=== PATIENT | male | born 1990 | race American Indian/Alaskan Native ===

== ENCOUNTER 2016-04-23 12:35 | Emergency (ER) | payer SELFPAY ==
[2016-04-23 12:58] VITALS: BP 138/87
--- NOTE | 2016-04-23 13:36 | Emergency Department Report ---
ED Back Pain/Injury HPI - General Chief Complaint: Back Pain/Injury Stated Complaint: BACK PAIN Time Seen by Provider: 04/23/16 13:33 Source: patient Limitations: No Limitations - Related Data Home Medications Medication Instructions Recorded Confirmed Last Taken Albuterol Sulfate [Ventolin HFA] 2 puff IH Q4H PRN 09/18/13 06/22/15 Unknown Previous Rx's Medication Instructions Recorded Last Taken Type HYDROcodone/APAP 5-325 [[place] 1 each PO Q6HR PRN #15 tablet 08/17/15 Unknown Rx 5-325 mg TAB] Codeine (Nf) 30 mg PO Q4H PRN #15 tablet 04/23/16 Unknown Rx Cyclobenzaprine HCl [Flexeril 5 MG 5 mg PO TID #14 tab 04/23/16 Unknown Rx TAB] Naproxen [Naprosyn TAB] 500 mg PO BID #20 tablet 04/23/16 Unknown Rx Allergies Allergy/AdvReac Type Severity Reaction Status Date / Time No Known Allergies Allergy Verified 04/23/16 12:55 ED Review of Systems ROS: Stated complaint: BACK PAIN Other details as noted in HPI Constitutional: denies: chills, fever Eyes: denies: eye pain, eye discharge, vision change ENT: denies: ear pain, throat pain Respiratory: denies: cough, shortness of breath, wheezing Cardiovascular: denies: chest pain, palpitations Gastrointestinal: denies: abdominal pain, nausea, diarrhea, constipation Genitourinary: denies: urgency, dysuria, frequency, hematuria, discharge, testicular pain, testicular mass Musculoskeletal: back pain Skin: denies: rash, lesions ED Past Medical Hx - Past Medical History Hx Hypertension: Yes Hx CVA: No Hx Heart Attack/AMI: No Hx Congestive Heart Failure: No Hx Diabetes: No Hx Deep Vein Thrombosis: No Hx Pulmonary Embolism: No Hx GERD: No Hx Liver Disease: No Hx Renal Disease: No Hx Sickle Cell Disease: No Hx Arthritis: No Hx Headaches / Migraines: No Hx Seizures: No Hx Kidney Stones: Yes Hx Psychiatric Treatment: No Hx Asthma: Yes Hx COPD: No Hx Tuberculosis: No Hx Dementia: No Hx HIV: No Additional medical history: OBESITY - Surgical History Hx Coronary Stent: No Hx Open Heart Surgery: No Hx Pacemaker: No Hx Internal Defibrillator: No Hx Cholecystectomy: No Hx Appendectomy: Yes Hx Breast Surgery: No - Social History Smoking Status: Never Smoker Substance Use Type: Alcohol - Medications Home Medications: Home Medications Medication Instructions Recorded Confirmed Last Taken Type Albuterol Sulfate [Ventolin HFA] 2 puff IH Q4H PRN 09/18/13 06/22/15 Unknown History HYDROcodone/APAP 5-325 [[place] 1 each PO Q6HR PRN #15 tablet 08/17/15 Unknown Rx 5-325 mg TAB] Codeine (Nf) 30 mg PO Q4H PRN #15 tablet 04/23/16 Unknown Rx Cyclobenzaprine HCl [Flexeril 5 MG 5 mg PO TID #14 tab 04/23/16 Unknown Rx TAB] Naproxen [Naprosyn TAB] 500 mg PO BID #20 tablet 04/23/16 Unknown Rx ED Physical Exam - General Limitations: No Limitations General appearance: alert, in no apparent distress - Head Head exam: Present: atraumatic, normocephalic - Eye Eye exam: Present: normal appearance - ENT ENT exam: Present: mucous membranes moist - Neck Neck exam: Present: normal inspection - Respiratory Respiratory exam: Present: normal lung sounds bilaterally. Absent: respiratory distress - Cardiovascular Cardiovascular Exam: Present: regular rate - GI/Abdominal GI/Abdominal exam: Present: soft. Absent: distended, tenderness, guarding, rebound, rigid - exam: Absent: testicular tenderness, scrotal swelling - Back Exam Back exam: Present: paraspinal tenderness. Absent: CVA tenderness (R), CVA tenderness (L), vertebral tenderness - Neurological Exam Neurological exam: Present: alert, oriented X3. Absent: altered - Skin Skin exam: Present: warm, dry, intact. Absent: rash ED Course Vital Signs 04/23/16 12:48 Temperature 98.2 F Pulse Rate 69 Respiratory 20 Rate Blood Pressure 138/87 O2 Sat by Pulse 98 Oximetry Critical care attestation.: If time is entered above; I have spent that time in minutes in the direct care of this critically ill patient, excluding procedure time. ED Disposition Clinical Impression: Chronic back pain greater than 3 months duration Disposition: DISCHARGED TO HOME OR SELFCARE Is pt being admited?: No Does the pt Need Aspirin: No Condition: Stable Instructions: Chronic Back Pain (ED) Prescriptions: Codeine (Nf) 30 mg PO Q4H PRN #15 tablet PRN Reason: Pain Cyclobenzaprine HCl [Flexeril 5 MG TAB] 5 mg PO TID #14 tab Naproxen [Naprosyn TAB] 500 mg PO BID #20 tablet Referrals: PRIMARY CARE, [Primary Care Provider] - 3-5 Days TD REYES MD [Staff Physician] - 3-5 Days Forms: Work/School Release Form, Work/School Excuse Out Patient
== END 2016-04-23 14:01 | disposition home or self-care (01) ==
LOC: ED 12:35
DX: M54.9 Dorsalgia, unspecified (principal); G89.29 Other chronic pain; I10 Essential (primary) hypertension; E66.9 Obesity, unspecified
CPT/HCPCS: 99282

== ENCOUNTER 2016-07-09 01:34 | Emergency (ER) | payer SELFPAY ==
[2016-07-09 01:57] VITALS: BP 158/107
[2016-07-09 02:31] LABS: Basophils % (Auto) 0.6 % (0.0-1.8); Eosinophils % (Auto) 2.3 % (0.0-4.3); Hematocrit 40.6 % (35.5-45.6); Hemoglobin 13.2 gm/dl (11.8-15.2); Mean Corpuscular HGB Conc 33 % (32-34); Mean Corpuscular Hemoglobin 28 pg (28-32); Mean Corpuscular Volume 87 fl (84-94); Platelet Count 213 K/mm3 (140-440); Red Blood Count 4.67 M/mm3 (3.65-5.03); Red Cell Distribution Width 13.1 % (13.2-15.2); White Blood Count 11.7 K/mm3 (4.5-11.0)
--- NOTE | 2016-07-09 02:44 | Cat Scan Report ---
FINAL REPORT PROCEDURE: CT HEAD/BRAIN WO CON TECHNIQUE: Computerized tomography of the head was performed without contrast material. HISTORY: LEFT NUMBNESS arm COMPARISON: 11/02/2012 FINDINGS: Skull and scalp: Normal. Paranasal sinuses: Normal. Ventricles and subarachnoid spaces: Normal. Cerebrum: No evidence of hemorrhage, acute infarction or mass . Cerebellum and brainstem: No evidence of hemorrhage, acute infarction or mass. Vasculature: Normal. Comments: None. IMPRESSION: There is no evidence of an acute intracranial process
[2016-07-09 02:55] LABS: Anion Gap 19 mmol/L; Blood Urea Nitrogen 16 mg/dL (9-20); Calcium 9.1 mg/dL (8.4-10.2); Carbon Dioxide 24 mmol/L (22-30); Chloride 101.4 mmol/L (98-107); Glucose 93 mg/dL (75-100); Sodium 140 mmol/L (137-145)
--- NOTE | 2016-07-12 15:12 | ED Elopement Review ---
ED Pt Elopement review - Results review Lab results: Laboratory Tests 07/09/16 07/09/16 02:13 02:13 WBC 11.7 H RBC 4.67 Hgb 13.2 Hct 40.6 MCV 87 MCH 28 MCHC 33 RDW 13.1 L Plt Count 213 Lymph % (Auto) 36.3 H [place] % (Auto) 8.3 H Eos % (Auto) 2.3 Baso % (Auto) 0.6 Lymph # 4.3 [place] # 1.0 H Eos # 0.3 Baso # 0.1 Seg Neutrophils % 52.5 Seg Neutrophils # 6.2 Sodium 140 Potassium 4.0 Chloride 101.4 Carbon Dioxide 24 Anion Gap 19 BUN 16 Creatinine 1.0 Estimated GFR > 60 BUN/Creatinine Ratio 16.00 Glucose 93 Calcium 9.1 Troponin T < 0.010 - Call Back decision Pt Call Back Decision: No action required
== END 2016-07-09 12:31 | disposition left against medical advice (07) ==
LOC: ED 01:34
DX: R07.9 Chest pain, unspecified (principal); Z53.21 Procedure and treatment not carried out due to patient leaving prior to being seen by health care provider
CPT/HCPCS: 36415; 70450; 80048; 84484; 85025; 93005; 93010

== ENCOUNTER 2016-11-17 18:01 | Emergency (ER) | payer SELFPAY ==
[2016-11-17 18:11] VITALS: BP 147/92
--- NOTE | 2016-11-17 19:47 | XRay Report ---
FINAL REPORT PROCEDURE: XR WRIST 3+V RT TECHNIQUE: Three views of the right wrist are obtained HISTORY: right wrist injury pain COMPARISON: No prior studies are available for comparison. FINDINGS: Soft tissue swelling is seen. No fracture or dislocation is seen. No arthritic changes are seen. IMPRESSION: No fracture is seen.
[2016-11-17] MEDS ORDERED: MOTRIN PO ONE (21:15)
--- NOTE | 2016-11-17 21:44 | Emergency Department Report ---
ED Upper Extremity Inj HPI - General Chief Complaint: Extremity Injury, Upper Stated Complaint: RT WRIST POSS FRACTURE Time Seen by Provider: 11/17/16 20:30 Source: patient Mode of arrival: Ambulatory Limitations: No Limitations - History of Present Illness Initial Comments: This is a 26-year-old male nontoxic, well nourished in appearance, no acute signs of distress presents to the ED complaining of right hand and right wrist pain. Patient stated earlier today around 3 PM patient punched a refrigerator. Patient denies any numbness, tingling, pus, drainage, fever, chills, headache , stiff neck, chest pain or shortness of breath. Associated symptoms include swelling and tenderness to touch. Patient denies any pop sensation. Denies any allergies. Past medical history includes asthma, hypertension, kidney stones, and obesity. MD Complaint: Injury to:: right -: Gradual, This afternoon Other Extremity Injury: Hand: Right Other Injuries: none Place: home Severity scale (0 -10): 8 Improves With: none Worsens With: none Context: direct blow Associated Symptoms: denies other symptoms. denies: weakness, numbness, neck pain, suspects foreign body, nausea/vomiting, heard/felt popping sensat - Related Data Home Medications Medication Instructions Recorded Confirmed Last Taken Albuterol Sulfate [Ventolin HFA] 2 puff IH Q4H PRN 09/18/06/22/15 Unknown Previous Rx's Medication Instructions Recorded Last Taken Type HYDROcodone/APAP 5-325 [[place] 1 each PO Q6HR PRN #15 tablet 08/17/15 Unknown Rx 5-325 mg TAB] Codeine (Nf) 30 mg PO Q4H PRN #15 tablet 04/23/16 Unknown Rx Cyclobenzaprine HCl [Flexeril 5 MG 5 mg PO TID #14 tab 04/23/16 Unknown Rx TAB] Naproxen [Naprosyn TAB] 500 mg PO BID #20 tablet 04/23/16 Unknown Rx Ibuprofen [Motrin 600 MG tab] 600 mg PO Q8H PRN #30 tablet 11/17/16 Unknown Rx Allergies Allergy/AdvReac Type Severity Reaction Status Date / Time No Known Allergies Allergy Verified 04/23/16 12:55 ED Review of Systems ROS: Stated complaint: RT WRIST POSS FRACTURE Other details as noted in HPI Constitutional: denies: chills, fever Eyes: denies: eye pain, eye discharge, vision change ENT: denies: ear pain, throat pain Respiratory: denies: cough, shortness of breath, wheezing Cardiovascular: denies: chest pain, palpitations Endocrine: no symptoms reported Gastrointestinal: denies: abdominal pain, nausea, diarrhea Genitourinary: denies: urgency, dysuria Musculoskeletal: denies: back pain, joint swelling, arthralgia Skin: denies: rash, lesions Neurological: denies: headache, weakness, paresthesias Psychiatric: denies: anxiety, depression Hematological/Lymphatic: denies: easy bleeding, easy bruising ED Past Medical Hx - Past Medical History Previous Medical History?: Yes Hx Hypertension: Yes Hx CVA: No Hx Heart Attack/AMI: No Hx Congestive Heart Failure: No Hx Diabetes: No Hx Deep Vein Thrombosis: No Hx Pulmonary Embolism: No Hx GERD: No Hx Liver Disease: No Hx Renal Disease: No Hx Sickle Cell Disease: No Hx Arthritis: No Hx Headaches / Migraines: No Hx Seizures: No Hx Kidney Stones: Yes Hx Psychiatric Treatment: No Hx Asthma: Yes Hx COPD: No Hx Tuberculosis: No Hx Dementia: No Hx HIV: No Additional medical history: OBESITY - Surgical History Past Surgical History?: Yes Hx Coronary Stent: No Hx Open Heart Surgery: No Hx Pacemaker: No Hx Internal Defibrillator: No Hx Cholecystectomy: No Hx Appendectomy: Yes Hx Breast Surgery: No - Social History Smoking Status: Never Smoker Substance Use Type: Alcohol - Medications Home Medications: Home Medications Medication Instructions Recorded Confirmed Last Taken Type Albuterol Sulfate [Ventolin HFA] 2 puff IH Q4H PRN 09/18/14 06/22/15 Unknown History HYDROcodone/APAP 5-325 [[place] 1 each PO Q6HR PRN #15 tablet 08/17/15 Unknown Rx 5-325 mg TAB] Codeine (Nf) 30 mg PO Q4H PRN #15 tablet 04/23/16 Unknown Rx Cyclobenzaprine HCl [Flexeril 5 MG 5 mg PO TID #14 tab 04/23/16 Unknown Rx TAB] Naproxen [Naprosyn TAB] 500 mg PO BID #20 tablet 04/23/16 Unknown Rx Ibuprofen [Motrin 600 MG tab] 600 mg PO Q8H PRN #30 tablet 11/17/16 Unknown Rx ED Physical Exam - General Limitations: No Limitations General appearance: alert, in no apparent distress - Head Head exam: Present: atraumatic, normocephalic, normal inspection - Eye Eye exam: Present: normal appearance, PERRL, EOMI. Absent: scleral icterus, conjunctival injection, nystagmus, periorbital swelling, periorbital tenderness Pupils: Present: normal accommodation - ENT ENT exam: Present: normal exam, normal orophraynx, mucous membranes moist, TM's normal bilaterally, normal external ear exam - Neck Neck exam: Present: normal inspection, full ROM. Absent: tenderness, meningismus, lymphadenopathy, thyromegaly - Respiratory Respiratory exam: Present: normal lung sounds bilaterally. Absent: respiratory distress, wheezes, rales, rhonchi, stridor, chest wall tenderness, accessory muscle use, decreased breath sounds, prolonged expiratory - Cardiovascular Cardiovascular Exam: Present: regular rate, normal rhythm, normal heart sounds. Absent: systolic murmur, diastolic murmur, rubs, gallop - GI/Abdominal GI/Abdominal exam: Present: soft, normal bowel sounds. Absent: distended, tenderness, guarding, rebound, rigid, diminished bowel sounds - Rectal Rectal exam: Present: deferred - Extremities Exam Extremities exam: Present: normal inspection, full ROM, tenderness, normal capillary refill. Absent: pedal edema, joint swelling, calf tenderness - Expanded Upper Extremity Exam Right General: Present: normal inspection Shoulder Exam: Present: normal inspection, full ROM. Absent: tenderness, swelling Upper Arm exam: Present: normal inspection, full ROM. Absent: tenderness, swelling Elbow exam: Present: normal inspection, full ROM. Absent: tenderness, swelling Forearm Wrist exam: Present: normal inspection, full ROM. Absent: tenderness, swelling, abrasion, laceration, ecchymosis, deformity, crepidus, dislocation, erythema, tenderness over anatomical snuff box, pain with axial thumb loading Hand Wrist exam: Present: normal inspection, full ROM, tenderness, swelling. Absent: abrasion, laceration, ecchymosis, deformity, crepidus, dislocation, erythema, amputation, nail avulsion, subungual hematoma Neuro motor exam: Present: wrist extension intact, thumb opposition intact, thumb IP flexion intact, thumb adduction intact, fingers 2-5 abduction intact Neurosensory exam: Present: 2-point discrimination, radial nerve intact, ulnar nerve intact, median nerve intact Vascular: Present: vascular compromise, normal capillary refill, radial pulse, brachial pulse, ulnar pulse - Back Exam Back exam: Present: normal inspection, full ROM. Absent: tenderness, CVA tenderness (R), CVA tenderness (L), muscle spasm, paraspinal tenderness, vertebral tenderness, rash noted - Neurological Exam Neurological exam: Present: alert, oriented X3, CN II-XII intact, normal gait, reflexes normal - Psychiatric Psychiatric exam: Present: normal affect, normal mood - Skin Skin exam: Present: warm, dry, intact, normal color. Absent: rash ED Course Vital Signs 11/17/16 18:07 Temperature 98.4 F Pulse Rate 96 H Respiratory 18 Rate Blood Pressure 147/92 O2 Sat by Pulse 95 Oximetry - Reevaluation(s) Reevaluation #1: 11/17/16 21:44 Patient is speaking in full sentences with no signs of distress noted. Reevaluation #2: 11/17/16 21:45 Patient received a new ice pack for extremity. ED Medical Decision Making - Medical Decision Making 26-year-old male that presents with right hand sprain. Patient received a boxer splint. Ice has been applied in the ED. Patient was instructed to rest, elevate, ice extremity. Patient referred to Dr. iSmpson or any other orthopedic doctor to follow up in 3-5 days. Patient received ibuprofen in the ED and discharge. At time time of discharge, the patient does not seem toxic or ill in appearance. No acute signs of distress noted. Patient agrees to discharge treatment plan of care. No further questions noted by the patient. Critical care attestation.: If time is entered above; I have spent that time in minutes in the direct care of this critically ill patient, excluding procedure time. ED Disposition Clinical Impression: Contusion Qualifiers: Encounter type: initial encounter Contusion area: hand Laterality: right Qualified Code(s): S60.221A - Contusion of right hand, initial encounter Hand sprain Qualifiers: Encounter type: initial encounter Laterality: right Qualified Code(s): S63.91XA - Sprain of unspecified part of right wrist and hand, initial encounter Disposition: TO HOME OR SELFCARE Is pt being admited?: No Does the pt Need Aspirin: No Condition: Stable Instructions: Ibuprofen (By mouth), Hand Sprain (ED), RICE Therapy (ED) Additional Instructions: Follow up with a orthopedic doctor in 3-5 days or if symptoms worsen return to emergency room as soon as possible. Rest, elevate, ice extremity. Prescriptions: Ibuprofen [Motrin 600 MG tab] 600 mg PO Q8H PRN #30 tablet PRN Reason: Pain Referrals: PRIMARY CARE, [Primary Care Provider] - 3-5 Days TOYIN SIMPSON MD [Staff Physician] - 3-[address] [facility] [Outside] - 3-5 Days [facility] [Outside] - 3-5 Days
--- NOTE | 2016-11-17 22:25 | XRay Report ---
FINAL REPORT PROCEDURE: XR HAND 3+V RT TECHNIQUE: Three views of the right hand are obtained HISTORY: RIGHT HAND swelling with pain s/p punch COMPARISON: No prior studies are available for comparison. FINDINGS: Soft tissue swelling is seen dorsally. No fracture or dislocation is seen. IMPRESSION: No fracture is seen.
== END 2016-11-18 00:25 | disposition home or self-care (01) ==
LOC: ED 18:01
DX: S63.8X1A Sprain of other part of right wrist and hand, initial encounter (principal); I10 Essential (primary) hypertension; J45.909 Unspecified asthma, uncomplicated; W22.8XXA Striking against or struck by other objects, initial encounter; Y93.89 Activity, other specified; Y99.8 Other external cause status; Y92.098 Other place in other non-institutional residence as the place of occurrence of the external cause

== ENCOUNTER 2016-12-28 12:04 | Emergency (ER) | payer SELFPAY ==
[2016-12-28 12:48] VITALS: BP 124/87
[2016-12-28] MEDS ORDERED: TORADOL IM ONE (15:19)
--- NOTE | 2016-12-28 15:43 | Emergency Department Report ---
ED Back Pain/Injury HPI - General Chief Complaint: Back Pain/Injury Stated Complaint: BACK PAIN Time Seen by Provider: 12/28/16 13:56 Source: patient Limitations: No Limitations - History of Present Illness Initial Comments: This is a 26-year-old male nontoxic, well nourished in appearance, no acute signs of distress presents to the ED complaining of back pain 1 day. Patient stated he will come in the morning with slight back pain that increased throughout the day. Patient denies any trauma to the region. Patient denies any dysuria, polyuria, hematuria, stiff neck, headache, shortness of breath, nausea, vomiting, chest pain or shortness of breath. Patient states pain radiates towards the right lower extremity. Patient denies history of similar symptoms. Patient denies any allergies. Past medical history includes asthma and obesity. MD Complaint: back pain -: Gradual, days(s) (1) Similar Symptoms Previously: No Place: home Radiation: right leg Severity: mild Severity scale (0 -10): 8 Quality: aching Consistency: constant Improves With: none Worsens With: none Associated Symptoms: denies other symptoms. denies: confusion, weakness, chest pain, numbness, difficulty walking, cough, difficulty urinating, diaphoresis, incontinence, fever/chills, constipation, headaches, abdominal pain, loss of appetite, malaise, nausea/vomiting, rash, seizure, shortness of breath, syncope - Related Data Home Medications Medication Instructions Recorded Confirmed Last Taken Albuterol Sulfate [Ventolin HFA] 2 puff IH Q4H PRN 09/18/06/22/15 Unknown Previous Rx's Medication Instructions Recorded Last Taken Type HYDROcodone/APAP 5-325 [[place] 1 each PO Q6HR PRN #15 tablet 08/17/15 Unknown Rx 5-325 mg TAB] Codeine (Nf) 30 mg PO Q4H PRN #15 tablet 04/23/16 Unknown Rx Cyclobenzaprine HCl [Flexeril 5 MG 5 mg PO TID #14 tab 04/23/16 Unknown Rx TAB] Naproxen [Naprosyn TAB] 500 mg PO BID #20 tablet 04/23/16 Unknown Rx Ibuprofen [Motrin 600 MG tab] 600 mg PO Q8H PRN #30 tablet 11/17/16 Unknown Rx Cyclobenzaprine [Flexeril] 10 mg PO BID #10 tablet 12/28/16 Unknown Rx Ibuprofen [Motrin 600 MG tab] 600 mg PO Q8H PRN #30 tablet 12/28/16 Unknown Rx Allergies Allergy/AdvReac Type Severity Reaction Status Date / Time No Known Allergies Allergy Verified 04/23/16 12:55 ED Review of Systems ROS: Stated complaint: BACK PAIN Other details as noted in HPI Constitutional: denies: chills, fever Eyes: denies: eye pain, eye discharge, vision change ENT: denies: ear pain, throat pain Respiratory: denies: cough, shortness of breath, wheezing Cardiovascular: denies: chest pain, palpitations Endocrine: no symptoms reported Gastrointestinal: denies: abdominal pain, nausea, diarrhea Genitourinary: denies: urgency, dysuria Musculoskeletal: denies: back pain, joint swelling, arthralgia Skin: denies: rash, lesions Neurological: denies: headache, weakness, paresthesias Psychiatric: denies: anxiety, depression Hematological/Lymphatic: denies: easy bleeding, easy bruising ED Past Medical Hx - Past Medical History Hx Hypertension: Yes Hx CVA: No Hx Heart Attack/AMI: No Hx Congestive Heart Failure: No Hx Diabetes: No Hx Deep Vein Thrombosis: No Hx Pulmonary Embolism: No Hx GERD: No Hx Liver Disease: No Hx Renal Disease: No Hx Sickle Cell Disease: No Hx Arthritis: No Hx Headaches / Migraines: No Hx Seizures: No Hx Kidney Stones: Yes Hx Psychiatric Treatment: No Hx Asthma: Yes Hx COPD: No Hx Tuberculosis: No Hx Dementia: No Hx HIV: No Additional medical history: OBESITY - Surgical History Hx Coronary Stent: No Hx Open Heart Surgery: No Hx Pacemaker: No Hx Internal Defibrillator: No Hx Cholecystectomy: No Hx Appendectomy: Yes Hx Breast Surgery: No - Social History Smoking Status: Never Smoker Substance Use Type: None - Medications Home Medications: Home Medications Medication Instructions Recorded Confirmed Last Taken Type Albuterol Sulfate [Ventolin HFA] 2 puff IH Q4H PRN 09/18/06/22/15 Unknown History HYDROcodone/APAP 5-325 [[place] 1 each PO Q6HR PRN #15 tablet 08/17/15 Unknown Rx 5-325 mg TAB] Codeine (Nf) 30 mg PO Q4H PRN #15 tablet 04/23/16 Unknown Rx Cyclobenzaprine HCl [Flexeril 5 MG 5 mg PO TID #14 tab 04/23/16 Unknown Rx TAB] Naproxen [Naprosyn TAB] 500 mg PO BID #20 tablet 04/23/16 Unknown Rx Ibuprofen [Motrin 600 MG tab] 600 mg PO Q8H PRN #30 tablet 11/17/16 Unknown Rx Cyclobenzaprine [Flexeril] 10 mg PO BID #10 tablet 12/28/16 Unknown Rx Ibuprofen [Motrin 600 MG tab] 600 mg PO Q8H PRN #30 tablet 12/28/16 Unknown Rx ED Physical Exam - General Limitations: No Limitations General appearance: alert, in no apparent distress - Head Head exam: Present: atraumatic, normocephalic, normal inspection - Eye Eye exam: Present: normal appearance, PERRL, EOMI. Absent: scleral icterus, conjunctival injection, nystagmus, periorbital swelling, periorbital tenderness Pupils: Present: normal accommodation - ENT ENT exam: Present: normal exam, normal orophraynx, mucous membranes moist, TM's normal bilaterally, normal external ear exam - Neck Neck exam: Present: normal inspection, full ROM. Absent: tenderness, meningismus, lymphadenopathy, thyromegaly - Respiratory Respiratory exam: Present: normal lung sounds bilaterally. Absent: respiratory distress, wheezes, rales, rhonchi, stridor, chest wall tenderness, accessory muscle use, decreased breath sounds, prolonged expiratory - Cardiovascular Cardiovascular Exam: Present: regular rate, normal rhythm, normal heart sounds. Absent: bradycardia, tachycardia, irregular rhythm, systolic murmur, diastolic murmur, rubs, gallop - GI/Abdominal GI/Abdominal exam: Present: soft, normal bowel sounds. Absent: distended, tenderness, guarding, rebound, rigid, diminished bowel sounds - Rectal Rectal exam: Present: deferred - Extremities Exam Extremities exam: Present: normal inspection, full ROM, normal capillary refill. Absent: tenderness, pedal edema, joint swelling, calf tenderness - Back Exam Back exam: Present: normal inspection, full ROM, paraspinal tenderness (lumabr region), vertebral tenderness (lumbar spinal tenderness). Absent: tenderness, CVA tenderness (R), CVA tenderness (L), muscle spasm, rash noted - Expanded Back Exam Expanded Back exam: Absent: saddle anesthesia Back exam: Negative Straight Leg Raising: Left, Right - Neurological Exam Neurological exam: Present: alert, oriented X3, CN II-XII intact, normal gait, reflexes normal - Psychiatric Psychiatric exam: Present: normal affect, normal mood - Skin Skin exam: Present: warm, dry, intact, normal color. Absent: rash ED Course Vital Signs 12/28/16 12/28/16 12:45 15:40 Temperature 98.2 F Pulse Rate 79 Respiratory 16 20 Rate Blood Pressure 124/87 O2 Sat by Pulse 98 Oximetry - Reevaluation(s) Reevaluation #1: 12/28/16 15:43 Patient is speaking in full sentences with no signs of distress noted. Reevaluation #2: 12/28/16 17:39 Patient stated pain has subsided after medical treatment of Toradol in the ED. ED Medical Decision Making - Radiology Data Radiology results: report reviewed interpreted by me: Dictated by radiologist Normal examination - Medical Decision Making 26-year-old male that presents with low back strain. X-ray has been obtained with negative findings of any abnormalities and dictated by radiologist. Patient received Toradol 60 mg IM the ED and patient stated pain has significantly decreased. Negative UA. Patient was prescribed Flexeril and ibuprofen and was instructed not to operate any machinery while taking Flexeril due to sebaceous/drowsiness. Patient was instructed to follow-up with a primary care doctor in 3-5 days or if symptoms worsen and continue return to emergency room as soon as possible possible. Patient is hemodynamically stable with stable vital signs. Patient states he is feeling better. At time time of discharge, the patient does not seem toxic or ill in appearance. No acute signs of distress noted. Patient agrees to discharge treatment plan of care. No further questions noted by the patient. Critical care attestation.: If time is entered above; I have spent that time in minutes in the direct care of this critically ill patient, excluding procedure time. ED Disposition Clinical Impression: Low back strain Qualifiers: Encounter type: initial encounter Qualified Code(s): S39.012A - Strain of muscle, fascia and tendon of lower back, initial encounter Disposition: - TO HOME OR SELFCARE Is pt being admited?: No Does the pt Need Aspirin: No Condition: Stable Instructions: Ibuprofen (By mouth), Cyclobenzaprine (By mouth), Low Back Strain (ED) Additional Instructions: Follow-up with a primary care doctor in 3-5 days or if symptoms worsen and continue return to emergency room as soon as possible possible. Take ibuprofen and Flexeril as prescribed. Do not operate heavy machinery while taking Flexeril due to sedation Prescriptions: Cyclobenzaprine [Flexeril] 10 mg PO BID #10 tablet Ibuprofen [Motrin 600 MG tab] 600 mg PO Q8H PRN #30 tablet PRN Reason: Pain Referrals: PRIMARY CAREMD [Primary Care Provider] - 3-5 Days MALLORY HECTOR MD [Staff Physician] - 3-5 Days [facility] [Outside] - 3-5 Days [facility] [Outside] - 3-5 Days Forms: Work/School Release Form(ED)
--- NOTE | 2016-12-28 16:03 | XRay Report ---
LUMBAR SPINE RADIOGRAPHS INDICATION: Low back spinal tenderness. COMPARISON: None similar. FINDINGS: AP and lateral lumbar spine radiographs demonstrate normal vertebral body stature and alignment. Mild lower lumbar disc narrowing suspected with mild L4 and L5 degenerative spurring. Intact SI joints. Clear visualized lung bases. Nonobstructive bowel gas pattern. CONCLUSION: Mild lower lumbar degenerative changes without acute radiographic abnormality, as described. Thank you for the opportunity to participate in this patient's care.
[2016-12-28 17:32] LABS: Bilirubin,Urine NEG (Negative); Blood,Urine NEG (Negative); Ketones,Urine NEG (Negative); Leukocyte Esterase,Urine NEG (Negative); Mucus,Urine 1+ /HPF; Nitrite,Urine NEG (Negative); Protein,Urine <15 mg/dL mg/dL (Negative); Urobilinogen,Urine < 2.0 mg/dL (<2.0); WBC,Urine < 1.0 /HPF (0.0-6.0)
== END 2016-12-28 17:45 | disposition home or self-care (01) ==
LOC: ED 12:04
DX: S39.012A Strain of muscle, fascia and tendon of lower back, initial encounter (principal); I10 Essential (primary) hypertension; X58.XXXA Exposure to other specified factors, initial encounter; Y93.89 Activity, other specified; Y92.89 Other specified places as the place of occurrence of the external cause; Y99.8 Other external cause status
CPT/HCPCS: 72100; 81001; 96372; 99284; J1885

== ENCOUNTER 2017-03-29 08:27 | Emergency (ER) | payer OTHER ==
[2017-03-29 10:37] VITALS: BP 127/88
--- NOTE | 2017-03-29 11:21 | XRay Report ---
LEFT SHOULDER RADIOGRAPHS INDICATION: Pain. COMPARISON: None similar. FINDINGS: Frontal and Y views of the left shoulder, 3 projections demonstrate normal humeral head contour, well positioned against the glenoid. Normal acromioclavicular joint. Preserved scapular contour. Normal visualized soft tissues, left ribs and lung. CONCLUSION: No acute left shoulder radiographic abnormality, as described. Thank you for the opportunity to participate in this patient's care.
== END 2017-03-29 10:45 | disposition left against medical advice (07) ==
LOC: ED 08:27
DX: M25.512 Pain in left shoulder (principal); Z53.21 Procedure and treatment not carried out due to patient leaving prior to being seen by health care provider

== ENCOUNTER 2017-06-28 17:11 | Emergency (ER) | payer BC ==
[2017-06-28 17:18] VITALS: BP 139/77
[2017-06-28] MEDS ORDERED: DUONEB *Not for PRN Use IH ONE (17:23)
--- NOTE | 2017-06-28 17:23 | Emergency Department Report ---
ED Asthma HPI - General Chief Complaint: Adult Asthma Stated Complaint: ASTHMA Time Seen by Provider: 06/28/17 17:21 Source: patient Mode of arrival: Ambulatory Limitations: No Limitations - History of Present Illness Initial Comments: This is a 27-year-old male nontoxic, well nourished in appearance, no acute signs of distress presents to the ED with c/o of wheezing x1 day. Patient stated he was outside and developed wheezing later that day. Patient stated has history of asthma but has not been on medications. Patient denies any recent travels, long car, recent hospital stays. Patient denies any calf pain or calf tenderness. Patient denies any chest pain, short of breath, fever, chills, nausea, vomiting, hemoptysis, numbness, tingling, headache or stiff neck. Patient denies any allergies. PMH includes asthma and HTN. MD Complaint: "asthma attack", wheezing -: This morning Asthma History: childhood onset Severity: mild Context: none known Associated Symptoms: none - Related Data Current Asthma Therapy: none Previous Rx's Medication Instructions Recorded Last Taken Type ALBUTEROL Inhaler [ProAir HFA 2 puff IH QID PRN #1 inhalation 06/28/17 Unknown Rx Inhaler] Azithromycin [Zithromax Z-EYAD] 250 mg PO DAILY #6 tablet 06/28/17 Unknown Rx Prednisone [predniSONE 10 mg 10 mg PO .TAPER #1 tab.ds.pk 06/28/17 Unknown Rx (6-Day Pack, 21 Tabs)] Allergies Allergy/AdvReac Type Severity Reaction Status Date / Time No Known Allergies Allergy Verified 03/29/17 10:37 ED Review of Systems ROS: Stated complaint: ASTHMA Other details as noted in HPI Constitutional: denies: chills, fever Eyes: denies: eye pain, eye discharge, vision change ENT: denies: ear pain, throat pain Respiratory: wheezing. denies: cough, shortness of breath Cardiovascular: denies: chest pain, palpitations Endocrine: no symptoms reported Gastrointestinal: denies: abdominal pain, nausea, diarrhea Genitourinary: denies: urgency, dysuria Musculoskeletal: denies: back pain, joint swelling, arthralgia Skin: denies: rash, lesions Neurological: denies: headache, weakness, paresthesias Psychiatric: denies: anxiety, depression Hematological/Lymphatic: denies: easy bleeding, easy bruising ED Past Medical Hx - Past Medical History Hx Hypertension: Yes Hx CVA: No Hx Heart Attack/AMI: No Hx Congestive Heart Failure: No Hx Diabetes: No Hx Deep Vein Thrombosis: No Hx Pulmonary Embolism: No Hx GERD: No Hx Liver Disease: No Hx Renal Disease: No Hx Sickle Cell Disease: No Hx Arthritis: No Hx Headaches / Migraines: No Hx Seizures: No Hx Kidney Stones: Yes Hx Psychiatric Treatment: No Hx Asthma: Yes Hx COPD: No Hx Tuberculosis: No Hx Dementia: No Hx HIV: No Additional medical history: OBESITY - Surgical History Hx Coronary Stent: No Hx Open Heart Surgery: No Hx Pacemaker: No Hx Internal Defibrillator: No Hx Cholecystectomy: No Hx Appendectomy: Yes Hx Breast Surgery: No - Social History Smoking Status: Never Smoker Substance Use Type: Alcohol - Medications Home Medications: Home Medications Medication Instructions Recorded Confirmed Last Taken Type ALBUTEROL Inhaler [ProAir HFA 2 puff IH QID PRN #1 inhalation 06/28/17 Unknown Rx Inhaler] Azithromycin [Zithromax Z-EYAD] 250 mg PO DAILY #6 tablet 06/28/17 Unknown Rx Prednisone [predniSONE 10 mg 10 mg PO .TAPER #1 tab.ds.pk 06/28/17 Unknown Rx (6-Day Pack, 21 Tabs)] ED Physical Exam - General Limitations: No Limitations General appearance: alert, in no apparent distress - Head Head exam: Present: atraumatic, normocephalic - Eye Eye exam: Present: normal appearance Pupils: Present: normal accommodation - ENT ENT exam: Present: normal exam, mucous membranes moist - Neck Neck exam: Present: normal inspection, full ROM. Absent: tenderness, meningismus - Respiratory Respiratory exam: Present: normal lung sounds bilaterally, wheezes (bilateral upper and lower lobes). Absent: respiratory distress, rales, rhonchi, stridor, chest wall tenderness, accessory muscle use, decreased breath sounds, prolonged expiratory - Cardiovascular Cardiovascular Exam: Present: regular rate, normal rhythm, normal heart sounds. Absent: bradycardia, tachycardia, irregular rhythm, systolic murmur, diastolic murmur, rubs, gallop - GI/Abdominal GI/Abdominal exam: Present: soft, normal bowel sounds - Rectal Rectal exam: Present: deferred - Extremities Exam Extremities exam: Present: normal inspection, full ROM, normal capillary refill - Back Exam Back exam: Present: normal inspection, full ROM - Neurological Exam Neurological exam: Present: alert, oriented X3, normal gait - Psychiatric Psychiatric exam: Present: normal affect, normal mood - Skin Skin exam: Present: warm, dry, intact, normal color. Absent: rash ED Course Vital Signs 06/28/17 17:16 Temperature 98 F Pulse Rate 84 Respiratory 18 Rate Blood Pressure 139/77 O2 Sat by Pulse 97 Oximetry - Reevaluation(s) Reevaluation #1: 06/28/17 18:57 Patient is speaking in full sentences with no signs of distress noted. Reevaluation #2: 06/28/17 18:58 There is decreased wheezing after DuoNeb and Solu-Medrol treatment in the ED. Patient states that he feels much better. ED Medical Decision Making - Medical Decision Making This is a 27-year-old male that presents with asthma exacerbation. Patient was examined by me. Chest x-ray has been obtained and reviewed by the radiologist with mild increasing markings which may be infiltrates. Patient is notified of the x-ray report with normal by the patient. [facility] Patient did receive DuoNeb and Solu-Medrol in the ED which patient stated that his symptoms have resolved and subsided. Patient denies any chest pain or shortness of breath. Wells criteria is 0 point for PE/DVT. Patient discharged with prednisone and albuterol. Patient was referred to Follow-up with a primary care doctor in 3-5 days or if symptoms worsen and continue return to emergency room as soon as possible. At time of discharge, the patient does not seem toxic or ill in appearance. No acute signs of distress noted. Patient agrees to discharge treatment plan of care. No further questions noted by the patient. Critical care attestation.: If time is entered above; I have spent that time in minutes in the direct care of this critically ill patient, excluding procedure time. ED Disposition Clinical Impression: Asthma exacerbation Qualifiers: Asthma severity: mild Asthma persistence: unspecified Qualified Code(s): J45.901 - Unspecified asthma with (acute) exacerbation Disposition: - TO HOME OR SELFCARE Is pt being admited?: No Does the pt Need Aspirin: No Condition: Stable Instructions: Albuterol (By breathing), Prednisone (By mouth), Asthma (ED) Additional Instructions: Follow-up with a primary care doctor in 3-5 days or if symptoms worsen and continue return to emergency room as soon as possible. Prescriptions: ALBUTEROL Inhaler [ProAir HFA Inhaler] 2 puff IH QID PRN #1 inhalation PRN Reason: Shortness Of Breath Azithromycin [Zithromax Z-EYAD] 250 mg PO DAILY #6 tablet Prednisone [predniSONE 10 mg (6-Day Pack, 21 Tabs)] 10 mg PO .TAPER #1 tab.ds.pk Referrals: PRIMARY CAREMD [Referring] - 3-5 Days EDGAR KAPOOR MD [Staff Physician] - 3-5 Days [facility] [Outside] - 3-5 Days [facility] [Outside] - 3-5 Days Forms: Work/School Release Form(ED)
--- NOTE | 2017-06-28 18:59 | XRay Report ---
FINAL REPORT EXAM: XR CHEST ROUTINE 2V HISTORY: wheezing TECHNIQUE: Two views of the chest were performed Comparison: None FINDINGS: Heart size is normal. Lungs are clear and well expanded without focal infiltrate or consolidation. There are mild increased markings at both bases with no definite interstitial infiltrate diffusely. There is no effusion. Imaged axial skeleton is unremarkable. IMPRESSION: Mild increased markings at both bases without definite infiltrate.
== END 2017-06-28 19:17 | disposition home or self-care (01) ==
LOC: ED 17:11
DX: J45.901 Unspecified asthma with (acute) exacerbation (principal); I10 Essential (primary) hypertension
CPT/HCPCS: 71046; 94640; 96372; 99283; J2930

== ENCOUNTER 2017-08-11 13:55 | Emergency (ER) | payer BC ==
[2017-08-11 14:05] VITALS: BP 140/80
--- NOTE | 2017-08-11 18:32 | Emergency Department Report ---
ED Lower Extremity HPI - General Chief Complaint: Extremity Injury, Lower Stated Complaint: RIGHT FOOT INJURY Time Seen by Provider: 08/11/17 18:00 Source: patient Mode of arrival: Ambulatory Limitations: No Limitations - History of Present Illness Initial Comments: 27-year-old male past medical history obesity, kidney stones, asthma presents with complaint of right second toe pain. As per patient while at work today a heavy pallet kofi rolled over the tip of his right distal toe. Patient denies any other injuries. Is ambulatory without assistance. Awake alert and oriented 3. Denies pain in greater foot or ankle, states the pain is only at the tip of the toe. MD Complaint: foot injury (rigght second toe pain ) -: This morning Injury: Toes: Right Severity scale (0 -10): 6 Worsens With: weight bearing, palpation Context: other Associated Symptoms: ambulatory - Related Data Previous Rx's Medication Instructions Recorded Last Taken Type ALBUTEROL Inhaler [ProAir HFA 2 puff IH QID PRN #1 inhalation 06/28/17 Unknown Rx Inhaler] Azithromycin [Zithromax Z-EYAD] 250 mg PO DAILY #6 tablet 06/28/17 Unknown Rx Prednisone [predniSONE 10 mg 10 mg PO .TAPER #1 tab.ds.pk 06/28/17 Unknown Rx (6-Day Pack, 21 Tabs)] Acetaminophen/Codeine [Tylenol 1 tab PO Q6H PRN #10 tab 08/11/17 Unknown Rx /Codeine # 3 tab] Ibuprofen [Motrin] 800 mg PO Q8HR PRN #30 tablet 08/11/17 Unknown Rx Allergies Allergy/AdvReac Type Severity Reaction Status Date / Time No Known Allergies Allergy Verified 08/11/17 14:03 ED Review of Systems ROS: Stated complaint: RIGHT FOOT INJURY Other details as noted in HPI Constitutional: denies: chills, fever Eyes: denies: eye pain, eye discharge, vision change ENT: denies: ear pain, throat pain Respiratory: denies: cough, shortness of breath, wheezing Cardiovascular: denies: chest pain, palpitations Endocrine: no symptoms reported Gastrointestinal: denies: abdominal pain, nausea, diarrhea Genitourinary: denies: urgency, dysuria Musculoskeletal: denies: back pain, joint swelling, arthralgia Skin: denies: rash, lesions Neurological: denies: headache, weakness, paresthesias Psychiatric: denies: anxiety, depression Hematological/Lymphatic: denies: easy bleeding, easy bruising ED Past Medical Hx - Past Medical History Hx Hypertension: Yes Hx CVA: No Hx Heart Attack/AMI: No Hx Congestive Heart Failure: No Hx Diabetes: No Hx Deep Vein Thrombosis: No Hx Pulmonary Embolism: No Hx GERD: No Hx Liver Disease: No Hx Renal Disease: No Hx Sickle Cell Disease: No Hx Arthritis: No Hx Headaches / Migraines: No Hx Seizures: No Hx Kidney Stones: Yes Hx Psychiatric Treatment: No Hx Asthma: Yes Hx COPD: No Hx Tuberculosis: No Hx Dementia: No Hx HIV: No Additional medical history: OBESITY - Surgical History Hx Coronary Stent: No Hx Open Heart Surgery: No Hx Pacemaker: No Hx Internal Defibrillator: No Hx Cholecystectomy: No Hx Appendectomy: Yes Hx Breast Surgery: No - Social History Smoking Status: Never Smoker Substance Use Type: Alcohol - Medications Home Medications: Home Medications Medication Instructions Recorded Confirmed Last Taken Type ALBUTEROL Inhaler [ProAir HFA 2 puff IH QID PRN #1 inhalation 06/28/17 Unknown Rx Inhaler] Azithromycin [Zithromax Z-EYAD] 250 mg PO DAILY #6 tablet 06/28/17 Unknown Rx Prednisone [predniSONE 10 mg 10 mg PO .TAPER #1 tab.ds.pk 06/28/17 Unknown Rx (6-Day Pack, 21 Tabs)] Acetaminophen/Codeine [Tylenol 1 tab PO Q6H PRN #10 tab 08/11/17 Unknown Rx /Codeine # 3 tab] Ibuprofen [Motrin] 800 mg PO Q8HR PRN #30 tablet 08/11/17 Unknown Rx ED Physical Exam - General Limitations: No Limitations General appearance: alert, in no apparent distress - Head Head exam: Present: atraumatic, normocephalic - Eye Eye exam: Present: normal appearance, PERRL, EOMI - ENT ENT exam: Present: mucous membranes moist - Neck Neck exam: Present: normal inspection - Respiratory Respiratory exam: Present: normal lung sounds bilaterally. Absent: respiratory distress - Cardiovascular Cardiovascular Exam: Present: regular rate, normal rhythm. Absent: systolic murmur, diastolic murmur, rubs, gallop - GI/Abdominal GI/Abdominal exam: Present: soft, normal bowel sounds - Rectal Rectal exam: Present: deferred - Extremities Exam Extremities exam: Present: normal inspection - Expanded Lower Extremity Exam Right Foot/Toe exam: Present: full ROM, tenderness (at tip of the second toe), swelling Neuro vascular tendon exam: Present: no vascular compromise - Back Exam Back exam: Present: normal inspection - Neurological Exam Neurological exam: Present: alert, oriented X3, CN II-XII intact, normal gait - Psychiatric Psychiatric exam: Present: normal affect, normal mood - Skin Skin exam: Present: warm, dry, intact, normal color. Absent: rash ED Course Vital Signs 08/11/17 14:03 Temperature 98.4 F Pulse Rate 79 Respiratory 16 Rate Blood Pressure 140/80 O2 Sat by Pulse 98 Oximetry ED Lower Extremity MDM - Medical Decision Making A/P: Small distal fracture left second digit 1-no visible fracture of the shaft of the foot bones or midfoot on x-ray. Possible small distal fracture second distal phalanges 2-Motrin when necessary, short course Tylenol No. 3 when necessary, Caio taping , FRANCESCA therapy 3-follow-up with podiatry Critical care attestation.: If time is entered above; I have spent that time in minutes in the direct care of this critically ill patient, excluding procedure time. ED Disposition Clinical Impression: Fracture of second toe, right, closed Qualifiers: Encounter type: initial encounter Qualified Code(s): S92.501A - Displaced unspecified fracture of right lesser toe(s), initial encounter for closed fracture Disposition: - TO HOME OR SELFCARE Is pt being admited?: No Does the pt Need Aspirin: No Condition: Stable Instructions: Toe Fracture (ED), RICE Therapy (ED) Prescriptions: Acetaminophen/Codeine [Tylenol /Codeine # 3 tab] 1 tab PO Q6H PRN #10 tab PRN Reason: Pain Ibuprofen [Motrin] 800 mg PO Q8HR PRN #30 tablet PRN Reason: Pain Referrals: [facility] [Provider Group] - 3-5 Days [facility] [Provider Group] - 3-5 Days Forms: Work/School Release Form(ED) Time of Disposition: 18:34
[2017-08-11] MEDS ORDERED: MOTRIN PO ONE (18:35)
--- NOTE | 2017-08-11 19:42 | XRay Report ---
FINAL REPORT EXAM: XR FOOT 3+V RT HISTORY: pain, injury to toes TECHNIQUE: AP, lateral, and oblique views of the right foot PRIORS: None. FINDINGS: There is no evidence for acute fracture or dislocation. No soft tissue swelling or radiopaque foreign bodies are seen. Bony mineralization is normal. Joint spaces are maintained. Spurring off the dorsum of the talonavicular joint is noted. IMPRESSION: No acute soft tissue or bony abnormality noted.
== END 2017-08-11 18:43 | disposition home or self-care (01) ==
LOC: ED 13:55
DX: S92.501A Displaced unspecified fracture of right lesser toe(s), initial encounter for closed fracture (principal); J45.909 Unspecified asthma, uncomplicated; E66.9 Obesity, unspecified; I10 Essential (primary) hypertension; Z87.442 Personal history of urinary calculi; X58.XXXA Exposure to other specified factors, initial encounter; Y93.89 Activity, other specified; Y99.9 Unspecified external cause status; Y92.89 Other specified places as the place of occurrence of the external cause

== ENCOUNTER 2017-08-17 12:38 | Emergency (ER) | payer BC ==
--- NOTE | 2017-08-17 14:00 | Emergency Department Report ---
ED General Adult HPI - General Chief complaint: Extremity Injury, Lower Stated complaint: FOOT PAIN Time Seen by Provider: 08/17/17 13:51 Source: patient Mode of arrival: Ambulatory Limitations: No Limitations - History of Present Illness Initial comments: Patient is 27 years old male, presented to the ER with a complaint of right foot pain? Meaning on for a while. Patient was evaluated in the ER here and his x-ray was negative patient stated that he wanted to go back to work. Patient stated that his pain is completely gone now, able to walk and he wanted a work release. - Related Data Previous Rx's Medication Instructions Recorded Last Taken Type ALBUTEROL Inhaler [ProAir HFA 2 puff IH QID PRN #1 inhalation 06/28/17 Unknown Rx Inhaler] Azithromycin [Zithromax Z-EYAD] 250 mg PO DAILY #6 tablet 06/28/17 Unknown Rx Prednisone [predniSONE 10 mg 10 mg PO .TAPER #1 tab.ds.pk 06/28/17 Unknown Rx (6-Day Pack, 21 Tabs)] Acetaminophen/Codeine [Tylenol 1 tab PO Q6H PRN #10 tab 08/11/17 Unknown Rx /Codeine # 3 tab] Ibuprofen [Motrin] 800 mg PO Q8HR PRN #30 tablet 08/11/17 Unknown Rx Allergies Allergy/AdvReac Type Severity Reaction Status Date / Time No Known Allergies Allergy Verified 08/11/17 14:03 ED Review of Systems ROS: Stated complaint: FOOT PAIN Other details as noted in HPI Comment: All other systems reviewed and negative ED Past Medical Hx - Past Medical History Previous Medical History?: Yes Hx Hypertension: Yes Hx CVA: No Hx Heart Attack/AMI: No Hx Congestive Heart Failure: No Hx Diabetes: No Hx Deep Vein Thrombosis: No Hx Pulmonary Embolism: No Hx GERD: No Hx Liver Disease: No Hx Renal Disease: No Hx Sickle Cell Disease: No Hx Arthritis: No Hx Headaches / Migraines: No Hx Seizures: No Hx Kidney Stones: Yes Hx Psychiatric Treatment: No Hx Asthma: Yes Hx COPD: No Hx Tuberculosis: No Hx Dementia: No Hx HIV: No Additional medical history: OBESITY, Right foot injury - Surgical History Past Surgical History?: Yes Hx Coronary Stent: No Hx Open Heart Surgery: No Hx Pacemaker: No Hx Internal Defibrillator: No Hx Cholecystectomy: No Hx Appendectomy: Yes Hx Breast Surgery: No - Social History Smoking Status: Never Smoker Substance Use Type: Alcohol - Medications Home Medications: Home Medications Medication Instructions Recorded Confirmed Last Taken Type ALBUTEROL Inhaler [ProAir HFA 2 puff IH QID PRN #1 inhalation 06/28/17 Unknown Rx Inhaler] Azithromycin [Zithromax Z-EYAD] 250 mg PO DAILY #6 tablet 06/28/17 Unknown Rx Prednisone [predniSONE 10 mg 10 mg PO .TAPER #1 tab.ds.pk 06/28/17 Unknown Rx (6-Day Pack, 21 Tabs)] Acetaminophen/Codeine [Tylenol 1 tab PO Q6H PRN #10 tab 08/11/17 Unknown Rx /Codeine # 3 tab] Ibuprofen [Motrin] 800 mg PO Q8HR PRN #30 tablet 08/11/17 Unknown Rx ED Physical Exam - General Limitations: No Limitations General appearance: alert, in no apparent distress - Head Head exam: Present: atraumatic - ENT ENT exam: Present: normal exam, normal orophraynx - Neck Neck exam: Present: normal inspection, full ROM. Absent: tenderness, meningismus - Respiratory Respiratory exam: Present: normal lung sounds bilaterally - Cardiovascular Cardiovascular Exam: Present: regular rate, normal rhythm, normal heart sounds - GI/Abdominal GI/Abdominal exam: Present: soft. Absent: distended, tenderness, guarding - Extremities Exam Extremities exam: Present: normal inspection, full ROM, normal capillary refill. Absent: tenderness, pedal edema, joint swelling, calf tenderness - Neurological Exam Neurological exam: Present: alert, oriented X3, CN II-XII intact, normal gait - Skin Skin exam: Present: warm, intact, normal color ED Course Vital Signs 08/17/17 12:51 Temperature 98 F Pulse Rate 83 Respiratory 20 Rate Blood Pressure 156/86 O2 Sat by Pulse 98 Oximetry Critical care attestation.: If time is entered above; I have spent that time in minutes in the direct care of this critically ill patient, excluding procedure time. ED Disposition Clinical Impression: Foot pain, right Disposition: DC-01 TO HOME OR SELFCARE Is pt being admited?: No Condition: Stable Additional Instructions: Patient can go back to work today. Referrals: PRIMARY CARE, [Primary Care Provider] - 3-5 Days Forms: Work/School Release Form(ED)
[2017-08-17 14:26] VITALS: BP 150/82
== END 2017-08-17 14:25 | disposition home or self-care (01) ==
LOC: ED 12:38
DX: M79.671 Pain in right foot (principal); I10 Essential (primary) hypertension
CPT/HCPCS: 99282

== ENCOUNTER 2018-03-24 22:08 | Emergency (ER) | payer OTHER ==
[2018-03-24 23:05] VITALS: BP 147/91
[2018-03-24] MEDS ORDERED: TYLENOL PO ONE (23:07)
[2018-03-24] MEDS ORDERED: TYLENOL ONE (23:08)
[2018-03-25] MEDS ORDERED: TORADOL IM ONE ×2 (02:22)
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
== END 2018-03-25 02:55 | disposition home or self-care (01) ==
LOC: ED 22:08
DX: M54.89 Other dorsalgia (principal); I10 Essential (primary) hypertension; J45.909 Unspecified asthma, uncomplicated; Z90.49 Acquired absence of other specified parts of digestive tract
CPT/HCPCS: 96372; 99282; J1885

== ENCOUNTER 2019-03-30 11:22 | Emergency (ER) | payer SELFPAY ==
[2019-03-30 11:46] VITALS: BP 150/86
[2019-03-30] MEDS ORDERED: predniSONE 20 MG TAB PO ONE (11:47)
--- NOTE | 2019-03-30 11:47 | Event Note ---
ED Screening Note ED Screening Note: HX ASTHMA COUGH NO FEVER OR CHILLS USING INHALER MORE THAN N DID NOT SEE PCP This initial assessment/diagnostic orders/clinical plan/treatment(s) is/are subject to change based on patients health status, clinical progression and re- assessment by fellow clinical providers in the ED. Further treatment and workup at subsequent clinical providers discretion. Patient/guardian urged not to elope from the ED as their condition may be serious if not clinically assessed and managed. Initial orders include: TRI GONZALEZ PNA
--- NOTE | 2019-03-30 13:19 | XRay Report ---
CHEST 2 VIEWS INDICATION: COUGH. COMPARISON: 06/28/2017 FINDINGS: Support devices: None. Heart: Within normal limits. Pulmonary vasculature: Lungs/pleura: No acute air space or interstitial disease. No pneumothorax. Additional findings: None. IMPRESSION: 1. No acute findings. Signer Name: Arun Jaquez MD Signed: 03/30/2019 1:15 PM Workstation Name: [id number]
--- NOTE | 2019-03-30 13:48 | Emergency Department Report ---
ED General Adult HPI - General Chief complaint: Upper Respiratory Infection Stated complaint: HEADACHE/CHEST PAIN Time Seen by Provider: 03/30/19 11:46 Source: patient Mode of arrival: Ambulatory Limitations: No Limitations - History of Present Illness Initial comments: Patient is a 29-year-old male with a past history of asthma who is complaining of cough and congestion. Patient states has had a wet cough however is unable to produce any sputum. Symptoms present for the past 3 days. Patient is complaining of some mild shortness of breath as well especially with exertion. Patient's has subjective fevers and chills. Patient denies sore throat and body aches neck stiffness nausea vomiting or diarrhea at this time. - Related Data Previous Rx's Medication Instructions Recorded Last Taken Type Albuterol INH(or & Nicu Only) 2 puff IH QID PRN #1 inhalation 06/28/17 Unknown Rx [ProAir HFA Inhaler] Albuterol Sulfate [Ventolin HFA] 2 puff IH Q4H PRN #1 hfa.aer.ad 02/21/18 Unknown Rx Amoxicillin [Trimox CAP] 500 mg PO BID #20 capsule 02/21/18 Unknown Rx Fluticasone [Flonase] 1 spray NS QDAY #1 bottle 02/21/18 Unknown Rx predniSONE [Deltasone] 50 mg PO QDAY #5 tab 02/21/18 Unknown Rx Baclofen [Lioresal] 10 mg PO TID #15 tab 03/25/18 Unknown Rx Ibuprofen [Motrin 800 MG tab] 800 mg PO Q8HR PRN #30 tablet 03/25/18 Unknown Rx Albuterol INH(or & Nicu Only) 2 puff IH QID PRN #1 inhalation 03/30/19 Unknown Rx [ProAir HFA Inhaler] Azithromycin [Zithromax Z-NOAH] 250 mg PO DAILY #6 tablet 03/30/19 Unknown Rx Benzonatate [Tessalon Perles] 100 mg PO Q8HR #10 capsule 03/30/19 Unknown Rx predniSONE [Deltasone] 20 mg PO QDAY #5 tab 03/30/19 Unknown Rx Allergies Allergy/AdvReac Type Severity Reaction Status Date / Time No Known Allergies Allergy Verified 03/30/19 11:46 ED Review of Systems ROS: Stated complaint: HEADACHE/CHEST PAIN Other details as noted in HPI Comment: All other systems reviewed and negative ED Past Medical Hx - Past Medical History Hx Hypertension: Yes Hx CVA: No Hx Heart Attack/AMI: No Hx Congestive Heart Failure: No Hx Diabetes: No Hx Deep Vein Thrombosis: No Hx Pulmonary Embolism: No Hx GERD: No Hx Liver Disease: No Hx Renal Disease: No Hx Sickle Cell Disease: No Hx Arthritis: No Hx Headaches / Migraines: No Hx Seizures: No Hx Kidney Stones: Yes Hx Psychiatric Treatment: No Hx Asthma: Yes Hx COPD: No Hx Tuberculosis: No Hx Dementia: No Hx HIV: No Additional medical history: OBESITY, Right foot injury - Surgical History Hx Coronary Stent: No Hx Open Heart Surgery: No Hx Pacemaker: No Hx Internal Defibrillator: No Hx Cholecystectomy: No Hx Appendectomy: Yes Hx Breast Surgery: No - Social History Smoking Status: Never Smoker Substance Use Type: None - Medications Home Medications: Home Medications Medication Instructions Recorded Confirmed Last Taken Type Albuterol INH(or & Nicu Only) 2 puff IH QID PRN #1 inhalation 06/28/17 Unknown Rx [ProAir HFA Inhaler] Albuterol Sulfate [Ventolin HFA] 2 puff IH Q4H PRN #1 hfa.aer.ad 02/21/18 Unknown Rx Amoxicillin [Trimox CAP] 500 mg PO BID #20 capsule 02/21/18 Unknown Rx Fluticasone [Flonase] 1 spray NS QDAY #1 bottle 02/21/18 Unknown Rx predniSONE [Deltasone] 50 mg PO QDAY #5 tab 02/21/18 Unknown Rx Baclofen [Lioresal] 10 mg PO TID #15 tab 03/25/18 Unknown Rx Ibuprofen [Motrin 800 MG tab] 800 mg PO Q8HR PRN #30 tablet 03/25/18 Unknown Rx Albuterol INH(or & Nicu Only) 2 puff IH QID PRN #1 inhalation 03/30/19 Unknown Rx [ProAir HFA Inhaler] Azithromycin [Zithromax Z-NOAH] 250 mg PO DAILY #6 tablet 03/30/19 Unknown Rx Benzonatate [Tessalon Perles] 100 mg PO Q8HR #10 capsule 03/30/19 Unknown Rx predniSONE [Deltasone] 20 mg PO QDAY #5 tab 03/30/19 Unknown Rx ED Physical Exam - General Limitations: No Limitations General appearance: alert, in no apparent distress - Head Head exam: Present: atraumatic, normocephalic - Eye Eye exam: Present: normal appearance - ENT ENT exam: Present: mucous membranes moist - Neck Neck exam: Present: normal inspection - Respiratory Respiratory exam: Present: normal lung sounds bilaterally, rhonchi (clears with coughing). Absent: respiratory distress, wheezes, rales - Cardiovascular Cardiovascular Exam: Present: regular rate, normal rhythm. Absent: systolic murmur, diastolic murmur, rubs, gallop - GI/Abdominal GI/Abdominal exam: Present: soft, normal bowel sounds. Absent: distended, tenderness, guarding, rebound - Rectal Rectal exam: Present: deferred - Extremities Exam Extremities exam: Present: normal inspection - Back Exam Back exam: Present: normal inspection - Neurological Exam Neurological exam: Present: alert, oriented X3 - Psychiatric Psychiatric exam: Present: normal affect, normal mood - Skin Skin exam: Present: warm, dry, intact, normal color. Absent: rash ED Course Vital Signs 03/30/19 11:45 Temperature 98.2 F Pulse Rate 75 Respiratory 20 Rate Blood Pressure 150/86 O2 Sat by Pulse 96 Oximetry ED Medical Decision Making - Radiology Data Ordering Physician: ANIVAL ANDRADE Date of Service: 03/30/19 Procedure(s): XR chest routine 2V Accession Number(s): [id number] cc: ANIVAL ANDRADE Fluoro Time In Minutes: CHEST 2 VIEWS INDICATION: COUGH. COMPARISON: 06/28/2017 FINDINGS: Support devices: None. Heart: Within normal limits. Pulmonary vasculature: Lungs/pleura: No acute air space or interstitial disease. No pneumothorax. Additional findings: None. IMPRESSION: 1. No acute findings. Signer Name: Arun Jaquez MD Signed: 03/30/2019 1:15 PM Workstation Name: [id number] - Medical Decision Making Patient is a 29-year-old -[place] male past history of asthma who is presenting with a productive cough. Patient's x-rays negative for obvious infiltrate. Because the patient's comorbidities the patient will be prescribed a Z-Noah for his acute bronchitis. Patient also started on steroids secondary to likely have mucus plugging as the patient has some rhonchi that does does clear with coughing. Critical care attestation.: If time is entered above; I have spent that time in minutes in the direct care of this critically ill patient, excluding procedure time. ED Disposition Clinical Impression: Acute bronchitis Qualifiers: Bronchitis organism: unspecified organism Qualified Code(s): J20.9 - Acute bronchitis, unspecified Disposition: DC-01 TO HOME OR SELFCARE Is pt being admited?: No Does the pt Need Aspirin: No Condition: Stable Instructions: Acute Bronchitis (ED) [facility] [Referring] - 3-5 Days Time of Disposition: 13:48
== END 2019-03-30 14:05 | disposition home or self-care (01) ==
LOC: ED 11:22
DX: J20.9 Acute bronchitis, unspecified (principal); I10 Essential (primary) hypertension; Z87.442 Personal history of urinary calculi; Z90.49 Acquired absence of other specified parts of digestive tract; Z79.899 Other long term (current) drug therapy
CPT/HCPCS: 71046; 99283; J7512

== ENCOUNTER 2019-05-09 11:39 | Emergency (ER) | payer SELFPAY ==
[2019-05-09 13:35] VITALS: BP 150/99
--- NOTE | 2019-05-09 13:35 | Event Note ---
ED Screening Note ED Screening Note: states he fell down some steps yesterday states he fell down about 10 steps c/o right big toe and left knee pain states he "felt a popping sensation in his left knee" pt is ambulatory This initial assessment/diagnostic orders/clinical plan/treatment(s) is/are subject to change based on patients health status, clinical progression and re- assessment by fellow clinical providers in the ED. Further treatment and workup at subsequent clinical providers discretion. Patient/guardian urged not to elope from the ED as their condition may be serious if not clinically assessed and managed. Initial orders include: XR right foot, XR left knee
--- NOTE | 2019-05-09 14:37 | XRay Report ---
LEFT KNEE 3 VIEWS INDICATION: right big toe pain after falling down stairs. COMPARISON: None. IMPRESSION: No acute osseous or soft tissue abnormality. No significant DJD. RIGHT FOOT 3 VIEWS INDICATION: right big toe pain after falling down stairs. COMPARISON: None. IMPRESSION: No acute osseous or soft tissue abnormality. No significant DJD. Signer Name: Bernardo Corado Jr, MD Signed: 05/09/2019 2:33 PM Workstation Name: [id number]
== END 2019-05-09 15:28 | disposition left against medical advice (07) ==
LOC: ED 11:39
DX: M25.562 Pain in left knee (principal); Z53.21 Procedure and treatment not carried out due to patient leaving prior to being seen by health care provider

== ENCOUNTER 2019-06-13 10:38 | Emergency (ER) | payer SELFPAY ==
[2019-06-13 10:45] VITALS: BP 168/93
--- NOTE | 2019-06-13 11:19 | Emergency Department Report ---
Chief Complaint: Upper Respiratory Infection Stated Complaint: CHEST Time Seen by Provider: 06/13/19 11:05 - HPI History of Present Illness: 29-year-old male presents emerged department complaining of coughing sneezing and watery eyes with a clear nasal drainage off and on. His occasional flareup in his asthma with wheezing reports no sore throat, no fever, chills, sweats no chest pain no palpitations no nausea vomiting - ROS Review of Systems: All systems are negative except as marked per HPI - Exam Vital Signs: Vital Signs 06/13/19 10:44 Temperature 98.6 F Pulse Rate 65 Respiratory 18 Rate Blood Pressure 168/93 [Left] O2 Sat by Pulse 99 Oximetry Physical Exam: Vital signs stable General: Patient is well nourished, well developed, awake and alert, resting comfortably in no acute distress Head: Normocephalic and atraumatic Eyes: Normal inspection, extraocular muscles intact, no conjunctival pallor Ear, nose, throat: Nasal congestion bilaterally with clear drainage. And swelling to the left turbinate Neck: Normal range of motion Respiratory: Patient is in no respiratory distress, lungs CTAB Cardiovascular: Patient is not tachycardic, RRR without murmur appreciated GI: Abd SNT with no guarding or rebound; +BS normoactive x 4, no tympanny to percussion Back: Normal inspection of the back with good strength and range of motion throughout all ext Extremities: pulses intact with good cap refills, no LE pitting edema or calf tenderness Neuro: The patient is alert and oriented to person, place, and time, appropriate ly conversive, with 5/5 bilat UE/LE strength, no gross motor or sensory defects noted. Coordination appears to be adequate. Skin: Warm, dry, and intact MSE screening note: Focused history and physical exam performed. Due to findings the following was ordered: ED Disposition for MSE Clinical Impression: Rhinitis Disposition: Z- MED SCREENING EXAM-LEFT Is pt being admited?: No Does the pt Need Aspirin: No Condition: Stable Instructions: Allergic Rhinitis (ED) Forms: Work/School Release Form(ED)
== END 2019-06-13 13:36 | disposition left against medical advice (07) ==
LOC: ED 10:38
DX: J30.9 Allergic rhinitis, unspecified (principal)
CPT/HCPCS: 99281

== ENCOUNTER 2021-04-21 16:31 | Emergency (ER) | payer SELFPAY ==
[2021-04-21 16:40] VITALS: BP 113/70
--- NOTE | 2021-04-21 17:30 | XRay Report ---
Right shoulder, 3 views HISTORY: Pain COMPARISON: 08/17/2015. FINDINGS: No acute fracture or malalignment. There is no significant arthritis. Soft tissues are unre markable. Visualized lungs are clear. IMPRESSION: No acute process. Signer Name: Dagoberto Agrawal MD Signed: 04/21/2021 5:26 PM Workstation Name: [id number]
[2021-04-21] MEDS ORDERED: IBUPROFEN 800 MG TAB PO STA (17:31)
[2021-04-21] MEDS ORDERED: HYDROcodone/ACETAMINOPHEN 5-325 MG TAB PO ONE (17:31)
--- NOTE | 2021-04-21 17:37 | Emergency Department Report ---
ED General Adult HPI - General Chief complaint: Shoulder Injury Stated complaint: RT ARM/SHOULDER INJURY Time Seen by Provider: 04/21/21 17:02 Source: patient Mode of arrival: Ambulatory Limitations: Physical Limitation - History of Present Illness Initial comments: 31-year-old -[place] male patient presents with right shoulder and right elbow pain after a tree fell on him yesterday. He rates his pain as a 9/10 in severity and states he has difficulty moving the elbow. Patient states he can move his shoulder, however he is not able to fully abduct his arm. He denies any numbness/tingling in his arm or hand. Past medical history includes asthma per patient. He has not tried any OTC medications for symptoms. NKDA per patient Severity scale (0 -10): 0 - Related Data Previous Rx's Medication Instructions Recorded Last Taken Type Albuterol Mdi (or & Nicu Only) 2 puff IH QID PRN #1 inhalation 06/28/17 Unknown Rx [ProAir HFA Inhaler] Albuterol Sulfate [Ventolin HFA] 2 puff IH Q4H PRN #1 hfa.aer.ad 02/21/18 Unknown Rx Amoxicillin [Trimox CAP] 500 mg PO BID #20 capsule 02/21/18 Unknown Rx Fluticasone [Flonase] 1 spray NS QDAY #1 bottle 02/21/18 Unknown Rx predniSONE [Deltasone] 50 mg PO QDAY #5 tab 02/21/18 Unknown Rx Baclofen [Lioresal] 10 mg PO TID #15 tab 03/25/18 Unknown Rx Ibuprofen [Motrin 800 MG tab] 800 mg PO Q8HR PRN #30 tablet 03/25/18 Unknown Rx Albuterol Mdi (or & Nicu Only) 2 puff IH QID PRN #1 inhalation 03/30/19 Unknown Rx [ProAir HFA Inhaler] Azithromycin [Zithromax Z-EYAD] 250 mg PO DAILY #6 tablet 03/30/19 Unknown Rx Benzonatate [Tessalon Perles] 100 mg PO Q8HR #10 capsule 03/30/19 Unknown Rx predniSONE [Deltasone] 20 mg PO QDAY #5 tab 03/30/19 Unknown Rx Acetaminophen/Codeine [Tylenol 1 tab PO Q8H PRN #6 tab 04/21/21 Unknown Rx /Codeine # 3 tab] Naproxen 500 mg PO BID PRN #20 tab 04/21/21 Unknown Rx methocarbamoL [Methocarbamol] 750 - 1,500 mg PO TID PRN #24 tab 04/21/21 Unknown Rx Allergies Allergy/AdvReac Type Severity Reaction Status Date / Time No Known Allergies Allergy Verified 03/30/19 11:46 ED Review of Systems ROS: Stated complaint: RT ARM/SHOULDER INJURY Other details as noted in HPI Musculoskeletal: joint swelling, arthralgia Skin: denies: change in color Neurological: denies: numbness, paresthesias ED Past Medical Hx - Past Medical History Hx Hypertension: Yes Hx CVA: No Hx Heart Attack/AMI: No Hx Congestive Heart Failure: No Hx Diabetes: No Hx Deep Vein Thrombosis: No Hx Pulmonary Embolism: No Hx GERD: No Hx Liver Disease: No Hx Renal Disease: No Hx Sickle Cell Disease: No Hx Arthritis: No Hx Headaches / Migraines: No Hx Seizures: No Hx Kidney Stones: Yes Hx Psychiatric Treatment: No Hx Asthma: Yes Hx COPD: No Hx Tuberculosis: No Hx Dementia: No Hx HIV: No Additional medical history: OBESITY, Right foot injury - Surgical History Hx Coronary Stent: No Hx Open Heart Surgery: No Hx Pacemaker: No Hx Internal Defibrillator: No Hx Cholecystectomy: No Hx Appendectomy: Yes Hx Breast Surgery: No - Social History Smoking Status: Never Smoker Substance Use Type: None - Medications Home Medications: Home Medications Medication Instructions Recorded Confirmed Last Taken Type Albuterol Mdi (or & Nicu Only) 2 puff IH QID PRN #1 inhalation 06/28/17 Unknown Rx [ProAir HFA Inhaler] Albuterol Sulfate [Ventolin HFA] 2 puff IH Q4H PRN #1 hfa.aer.ad 02/21/18 Unknown Rx Amoxicillin [Trimox CAP] 500 mg PO BID #20 capsule 02/21/18 Unknown Rx Fluticasone [Flonase] 1 spray NS QDAY #1 bottle 02/21/18 Unknown Rx predniSONE [Deltasone] 50 mg PO QDAY #5 tab 02/21/18 Unknown Rx Baclofen [Lioresal] 10 mg PO TID #15 tab 03/25/18 Unknown Rx Ibuprofen [Motrin 800 MG tab] 800 mg PO Q8HR PRN #30 tablet 03/25/18 Unknown Rx Albuterol Mdi (or & Nicu Only) 2 puff IH QID PRN #1 inhalation 03/30/19 Unknown Rx [ProAir HFA Inhaler] Azithromycin [Zithromax Z-EYAD] 250 mg PO DAILY #6 tablet 03/30/19 Unknown Rx Benzonatate [Tessalon Perles] 100 mg PO Q8HR #10 capsule 03/30/19 Unknown Rx predniSONE [Deltasone] 20 mg PO QDAY #5 tab 03/30/19 Unknown Rx Acetaminophen/Codeine [Tylenol 1 tab PO Q8H PRN #6 tab 04/21/21 Unknown Rx /Codeine # 3 tab] Naproxen 500 mg PO BID PRN #20 tab 04/21/21 Unknown Rx methocarbamoL [Methocarbamol] 750 - 1,500 mg PO TID PRN #24 tab 04/21/21 Unknown Rx ED Physical Exam - General Limitations: Physical Limitation General appearance: alert, in no apparent distress, obese - Head Head exam: Present: atraumatic, normocephalic - Eye Eye exam: Present: normal appearance. Absent: scleral icterus - Neck Neck exam: Present: normal inspection - Respiratory Respiratory exam: Present: normal lung sounds bilaterally. Absent: respiratory distress - Cardiovascular Cardiovascular Exam: Present: regular rate, normal rhythm - Expanded Upper Extremity Exam Right Shoulder Exam: Present: full ROM, tenderness (mild). Absent: swelling, abrasion, laceration, deformity, crepidus, tenderness over AC joint Elbow exam: Present: tenderness, swelling. Absent: full ROM, abrasion, ecchym osis, deformity Forearm Wrist exam: Present: normal inspection Hand Wrist exam: Present: normal inspection Vascular: Present: vascular compromise - Neurological Exam Neurological exam: Present: alert, oriented X3, normal gait - Psychiatric Psychiatric exam: Present: normal affect, normal mood - Skin Skin exam: Present: warm, dry, intact, normal color. Absent: rash ED Course Vital Signs 04/21/21 16:39 Temperature 98.0 F Pulse Rate 85 Respiratory 14 Rate Blood Pressure 113/70 [Left] O2 Sat by Pulse 100 Oximetry ED Medical Decision Making - Radiology Data Radiology results: report reviewed Right shoulder, 3 views HISTORY: Pain COMPARISON: 08/17/2015. FINDINGS: No acute fracture or malalignment. There is no significant arthritis. Soft tissues are unremarkable. Visualized lungs are clear. IMPRESSION: No acute process. - Medical Decision Making 31-year-old -[place] male patient presents with right shoulder and right elbow pain after a tree fell on him yesterday. He rates his pain as a 9/10 in severity and states he has difficulty moving the elbow. Patient states he can move his shoulder, however he is not able to fully abduct his arm. He denies any numbness/tingling in his arm or hand. Past medical history includes asthma per patient. He has not tried any OTC medications for symptoms. NKDA per patient X-rays are negative for any acute bony abnormalities. Patient placed in shoulder sling. Recommend rice method of treatment along with NSAIDs. He is to follow-up with orthopedics as needed. He is otherwise well-appearing, his vitals are within normal limits, he is stable for discharge home. Strict return precautions were discussed in detail with patient who verbalizes understanding Critical care attestation.: If time is entered above; I have spent that time in minutes in the direct care of this critically ill patient, excluding procedure time. ED Disposition Clinical Impression: Right shoulder injury, Injury of right elbow Disposition: 01 HOME / SELF CARE / HOMELESS Is pt being admited?: No Condition: Stable Instructions: Shoulder Sprain, Elbow Sprain Prescriptions: methocarbamoL [Methocarbamol] 750 - 1,500 mg PO TID PRN #24 tab PRN Reason: muscle spasm/tightness Naproxen 500 mg PO BID PRN #20 tab PRN Reason: pain Acetaminophen/Codeine [Tylenol /Codeine # 3 tab] 1 tab PO Q8H PRN #6 tab PRN Reason: Pain , Severe (7-10) Referrals: [facility] [Provider Group] - as needed Forms: Work/School Release Form(ED)
--- NOTE | 2021-04-21 18:33 | XRay Report ---
Right elbow-3 views INDICATION: pain and swelling after injury. COMPARISON: None available. IMPRESSION: No acute osseous abnormality. Normal alignment. No significant DJD. Mild soft tissue s welling along the posterior aspect of the elbow. Minimal enthesopathic change at the olecranon. Signer Name: Fly Tony MD Signed: 04/21/2021 6:29 PM Workstation Name: [id number]
== END 2021-04-21 19:30 | disposition home or self-care (01) ==
LOC: ED 16:31
DX: S49.91XA Unspecified injury of right shoulder and upper arm, initial encounter (principal); S59.901A Unspecified injury of right elbow, initial encounter; X58.XXXA Exposure to other specified factors, initial encounter; Y93.89 Activity, other specified; Y92.89 Other specified places as the place of occurrence of the external cause; Y99.8 Other external cause status
CPT/HCPCS: 99283